=== PATIENT | female | born 1980 | race Hispanic/Latino ===

== ENCOUNTER 2017-12-23 18:52 | Inpatient (IN) | payer OTHER ==
[2017-12-23] MEDS ORDERED: Sodium Chloride 0.9% 1,000 ML IV STA (19:12)
--- NOTE | 2017-12-23 19:15 | ED PDOC ---
HPI: Psych/Substance Abuse Chief Complaint (Provider): Overdose - Ativan 10mg History Per: Patient History/Exam Limitations: no limitations Onset/Duration Of Symptoms: Mins Additional Complaint(s): 37 yo female with history of depression presents for evaluation after taking approx 20 tabs of 0.5 mg ativan. Pt states she was not taking her medications for anxiety and depression for the last 2 months. 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 Pt states that today she began to feel extremely overwhelmed getting ready for school which begins tomorrow. PT than took her medications. #60 Ativan 0.5 on 12/17/17 - Pt takes 1-2 daily. <Angeles Lopez - Last Filed: 12/23/17 20:10> <Juan Nieto - Last Filed: 12/23/17 23:34> Time Seen by Provider: 12/23/17 19:11 Chief Complaint (Nursing): Psychiatric Evaluation Past Medical History Reviewed: Historical Data, Nursing Documentation, Vital Signs Vital Signs: Last Vital Signs Temp 98.5 F 12/23/17 18:55 Pulse 97 H 12/23/17 18:55 Resp 16 12/23/17 18:55 BP 170/55 H 12/23/17 18:55 Pulse Ox 99 12/23/17 18:55 - Medical History PMH: Anxiety, Depression - Surgical History Surgical History: No Surg Hx - Family History Family History: States: No Known Family Hx <Angeles Lopez - Last Filed: 12/23/17 20:10> Vital Signs: Last Vital Signs Temp 98.5 F 12/23/17 18:55 Pulse 76 12/23/17 23:15 Resp 16 12/23/17 23:15 BP 94/61 L 12/23/17 23:15 Pulse Ox 98 12/23/17 23:15 <Juan Nieto - Last Filed: 12/23/17 23:34> - Home Medications Home Medications: Ambulatory Orders Medication Instructions Recorded Escitalopram [Lexapro] 10 mg PO DAILY 12/23/17 LORazepam [Ativan] 0.5 mg PO BID 12/23/17 lamoTRIgine [Lamictal] 100 mg PO HS 12/23/17 - Allergies Allergies/Adverse Reactions: Allergies Allergy/AdvReac Type Severity Reaction Status Date / Time No Known Allergies Allergy Verified 12/23/17 18:58 Review of Systems ROS Statement: Except As Marked, All Systems Reviewed And Found Negative Constitutional: Negative for: Fever, Chills Psych: Positive for: Anxiety, Depression <Angeles Lopez - Last Filed: 12/23/17 20:10> Physical Exam - Reviewed Nursing Documentation Reviewed: Yes Vital Signs Reviewed: Yes - Physical Exam Appears: Positive for: Well, Non-toxic, No Acute Distress Head Exam: Positive for: ATRAUMATIC, NORMAL INSPECTION, NORMOCEPHALIC Skin: Positive for: Normal Color, Warm, DRY Eye Exam: Positive for: Normal appearance ENT: Positive for: Normal ENT Inspection Neck: Positive for: Normal, Painless ROM Cardiovascular/Chest: Positive for: Regular Rate, Rhythm Respiratory: Positive for: CNT, Normal Breath Sounds Back: Positive for: Normal Inspection Extremity: Positive for: Normal ROM Neurologic/Psych: Positive for: Alert, Oriented, Mood/Affect. Negative for: Gait, Facial Droop <Angeles Lopez - Last Filed: 12/23/17 20:10> - Laboratory Results Result Diagrams: 12/23/17 19:21 12/23/17 19:21 - ECG O2 Sat by Pulse Oximetry: 99 <Angeles Lopez - Last Filed: 12/23/17 20:10> - Laboratory Results Result Diagrams: 12/23/17 19:21 12/23/17 19:21 <Juan Nieto - Last Filed: 12/23/17 23:34> Medical Decision Making Medical Decision Making: Called [facility] and discussed with Alexandra Hanson: [employer] depression. Can givena ctivated charcoal if patient alert and can protect their airway. Do nott give reversal agent - Pt has been taking 1-2 times daily. 1914 - Case discussed with Dr. Nieto Repeat vitals stable. Admission to ICU for monitoring. <Angeles Lopez - Last Filed: 12/23/17 20:10> Medical Decision Making: Case referred to Dr Mendoza who has asked that patient be admitted tonight under hospitalist [facility] [place] due to being away for long weekend; case referred to Dr Shah. Dr Mendoza will attempt to transfer to his service tomorrow. <Juan Nieto - Last Filed: 12/23/17 23:34> Disposition - Patient ED Disposition Is Patient to be Admitted: Yes - Disposition Disposition Time: 20:11 - Pt Status Changed To: Hospital Disposition Of: Inpatient - Admit Certification Admit to Inpatient:: After my assessment, the patient will require hospitalization for at least two midnights. This is because of the severity of symptoms shown, intensity of services needed, and/or the medical risk in this patient being treated as an outpatient. - POA Present On Arrival: None <Angeles Lopez - Last Filed: 12/23/17 20:10> <Juan Nieto - Last Filed: 12/23/17 23:34> - Clinical Impression Clinical Impression: Benzodiazepine overdose of undetermined intent - Disposition Condition: GOOD
[2017-12-23] MEDS ORDERED: Activated Charcoal/Sorbitol 25 GM/120 ML PO ONE (19:20)
[2017-12-23 19:28] LABS: BASO % 0.3 % (0.0-2.0); EOS % 0.3 % (0.0-4.0); HEMOGLOBIN 12.9 g/dL (12.0-16.0); LYMPH # 1.5 K/uL (1.0-4.3); LYMPH % 18.1 % (20.0-40.0); MEAN CELL VOLUME 87.3 fl (81.0-99.0); MEAN CORPUSCULAR HEMOGLOBIN 29.7 pg (27.0-31.0); MEAN PLATELET VOLUME 8.2 fl (7.2-11.7); MONO # 0.4 K/uL (0.0-0.8); MONO % 5.4 % (0.0-10.0); NEUT # 6.3 K/uL (1.8-7.0); NEUT % 75.9 % (50.0-75.0); RBC 4.36 Mil/uL (3.80-5.20); RED CELL DISTRIBUTION WIDTH 12.8 % (11.5-14.5); WHITE BLOOD COUNT 8.3 K/uL (4.8-10.8)
[2017-12-23 19:31] LABS: INR 1.1; PROTHROMBIN TIME 12.3 Seconds (9.8-13.1)
[2017-12-23 19:37] LABS: ALB/GLOB RATIO 1.5 (1.0-2.1); ALBUMIN 4.4 g/dL (3.5-5.0); ALT/SGPT 25 U/L (9-52); AST/SGOT 32 U/L (14-36); BLOOD UREA NITROGEN 12 mg/dl (7-17); CALCIUM 8.9 mg/dL (8.4-10.2); GFR NON-AFRICAN AMERICAN > 60
[2017-12-23 19:38] LABS: ACETAMINOPHEN < 10.0 ug/ml (10.0-30.0); SALICYLATE < 1.0 mg/dl
[2017-12-23 21:23] LABS: SQUAMOUS EPITHIAL < 1 /hpf (0-5); URINE BILIRUBIN NEGATIVE (NEGATIVE); URINE BLOOD NEGATIVE (NEGATIVE); URINE CLARITY CLEAR (Clear); URINE COLOR STRAW (YELLOW); URINE GLUCOSE (UA) 50 mg/dL (Normal); URINE LEUKOCYTE ESTERASE NEG Leu/uL (Negative); URINE PROTEIN NEGATIVE (NEGATIVE); URINE UROBILINOGEN 0.2-1.0 mg/dL (0.2-1.0)
[2017-12-23 21:24] LABS: BARBITURATES, UR NEGATIVE (NEGATIVE); BENZODIAZEPINES, UR NEGATIVE (NEGATIVE); OPIATES, UR NEGATIVE (NEGATIVE); PHENCYCLIDINE, UR NEGATIVE (NEGATIVE)
--- NOTE | 2017-12-23 21:30 | CP.PCM.HP ---
History of Present Illness - History of Present Illness History of Present Illness: PMD: Zeeshan May MD Chief Complaint: Drug Overdose The patient was seen and examined in the ED with friends present HPI: The hx was obtained from the patient, her friends and after review of the medial records. She is a 37 years old female with hx of Bipolar, Depression with prior suicide ideation, now brought to the ED 30minutes after intentional ingestion of 20 to 30 Ativan tablets 0.5mg each. She said that she wanted to harm herself. She feels sleepy with dizziness on standing. No LOC, headache, nausea, vomits. no Chest pain but she did feel some palpitation. PMH: Depression and anxiety disorder; Suicide Ideation 2006; PSH: No Surgical Hx SH: Never Smoked; Social alcohol use; No illegal drug use; Live alone; works as a teacher FH: Mother with bipolar Father with CVA in 2006 Allergies: NKDA Medication: Reviewed Present on Admission - Present on Admission Any Indicators Present on Admission: No History of DVT/PE: No History of Uncontrolled Diabetes: No Urinary Catheter: No Decubitus Ulcer Present: No Review of Systems - Review of Systems Review of Systems: Review of system is limited as the patient is sleepy with the Ativan overdose - Constitutional Constitutional: absent: Chills, Fever, Headache - EENT Eyes: Requires Corrective Lenses. absent: Blurred Vision, Diplopia, Floaters Ears: absent: Decreased Hearing, Ear Discharge, Tinnitus Nose/Mouth/Throat: absent: Epistaxis, Nasal Congestion, Nasal Discharge - Cardiovascular Cardiovascular: absent: Chest Pain, Dyspnea, Edema - Respiratory Respiratory: absent: Cough, Dyspnea, Wheezing, Stridor - Gastrointestinal Gastrointestinal: absent: Abdominal Pain, Diarrhea, Nausea, Vomiting - Genitourinary Genitourinary: absent: Dysuria, Flank Pain, Urinary Frequency - Musculoskeletal Musculoskeletal: absent: Muscle Cramps, Muscle Weakness - Integumentary Integumentary: absent: Pruritus, Rash, Skin Ulcer, Sores, Striae, Swelling - Neurological Neurological: Dizziness. absent: Confusion, Headaches, Weakness - Psychiatric Psychiatric: Anxiety, Depression, Suicidal Ideation - Endocrine Endocrine: Palpitations. absent: Polydipsia, Polyphagia, Polyuria - Hematologic/Lymphatic Hematologic: absent: Easy Bleeding, Easy Bruising Past Patient History - Infectious Disease Hx of Infectious Diseases: None - Past Medical History & Family History Past Medical History?: No - Past Social History Smoking Status: Never Smoked Chewing Tobacco Use: No Cigar Use: No Alcohol: Social Home Situation {Lives}: Alone - CARDIAC Hx Cardiac Disorders: No - PULMONARY Hx Respiratory Disorders: No - NEUROLOGICAL Hx Neurological Disorder: No - HEENT Hx HEENT Problems: No Hx Blind: No - RENAL Hx Chronic Kidney Disease: No - ENDOCRINE/METABOLIC Hx Endocrine Disorders: No - HEMATOLOGICAL/ONCOLOGICAL Hx Blood Disorders: No - INTEGUMENTARY Hx Dermatological Problems: No - MUSCULOSKELETAL/RHEUMATOLOGICAL Hx Musculoskeletal Disorders: No - GASTROINTESTINAL Hx Gastrointestinal Disorders: No - GENITOURINARY/GYNECOLOGICAL Hx Genitourinary Disorders: No - PSYCHIATRIC Hx Anxiety: Yes Hx Depression: Yes - SURGICAL HISTORY Hx Surgeries: No - ANESTHESIA Hx Anesthesia: No Meds Allergies/Adverse Reactions: Allergies Allergy/AdvReac Type Severity Reaction Status Date / Time No Known Allergies Allergy Verified 12/23/17 18:58 Physical Exam - Constitutional Appears: No Acute Distress - Head Exam Head Exam: ATRAUMATIC, NORMAL INSPECTION, NORMOCEPHALIC - Eye Exam Eye Exam: EOMI, Normal appearance Pupil Exam: NORMAL ACCOMODATION, PERRL - ENT Exam ENT Exam: Mucous Membranes Dry, Normal Exam, Normal External Ear Exam - Neck Exam Neck exam: Positive for: Full Rom, Normal Inspection. Negative for: Lymphadenopathy, Tenderness - Respiratory Exam Respiratory Exam: Clear to Auscultation Bilateral. absent: Rales, Rhonchi, Wheezes - Cardiovascular Exam Cardiovascular Exam: REGULAR RHYTHM, RRR, +S1, +S2 - GI/Abdominal Exam GI & Abdominal Exam: Normal Bowel Sounds, Soft. absent: Mass, Organomegaly, Tenderness - Rectal Exam Rectal Exam: Deferred - Extremities Exam Extremities exam: Positive for: full ROM, normal inspection. Negative for: calf tenderness, pedal edema - Back Exam Back exam: NORMAL INSPECTION. absent: CVA tenderness (L), CVA tenderness (R) - Neurological Exam Neurological exam: CN II-XII Intact, Oriented x3, Reflexes Normal - Psychiatric Exam Psychiatric exam: Flat Affect - Skin Skin Exam: Dry, Normal Color, Pallor, Warm Results - Vital Signs Recent Vital Signs: Last Vital Signs Temp 98.5 F 12/23/17 18:55 Pulse 95 H 12/23/17 21:17 Resp 20 12/23/17 21:17 BP 114/80 09/03/18 21:17 Pulse Ox 99 12/23/17 21:17 - Labs Result Diagrams: 12/23/17 19:21 12/23/17 19:21 Labs: Laboratory Results - last 24 hr 12/23/17 12/23/17 12/23/17 19:21 19:21 19:21 WBC 8.3 RBC 4.36 Hgb 12.9 Hct 38.0 MCV 87.3 MCH 29.7 MCHC 34.0 RDW 12.8 Plt Count 224 MPV 8.2 Neut % (Auto) 75.9 H Lymph % (Auto) 18.1 L [place] % (Auto) 5.4 Eos % (Auto) 0.3 Baso % (Auto) 0.3 Neut # (Auto) 6.3 Lymph # (Auto) 1.5 [place] # (Auto) 0.4 Eos # (Auto) 0.0 Baso # (Auto) 0.0 PT INR APTT Sodium 139 Potassium 3.8 Chloride 101 Carbon Dioxide 26 Anion Gap 16 BUN 12 Creatinine 0.7 Est GFR ( Amer) > 60 Est GFR (Non-Af Amer) > 60 Random Glucose 100 Lactic Acid Calcium 8.9 Total Bilirubin 0.6 AST 32 ALT 25 Alkaline Phosphatase 47 Total Protein 7.5 Albumin 4.4 Globulin 3.1 Albumin/Globulin Ratio 1.5 Salicylates < 1.0 Urine Opiates Screen Urine Methadone Screen Acetaminophen < 10.0 L Ur Barbiturates Screen Ur Phencyclidine Scrn Ur Amphetamines Screen U Benzodiazepines Scrn U Oth Cocaine Metabols U Cannabinoids Screen Alcohol, Quantitative 12/23/17 12/23/17 12/23/17 19:21 19:41 20:00 WBC RBC Hgb Hct MCV MCH MCHC RDW Plt Count MPV Neut % (Auto) Lymph % (Auto) [place] % (Auto) Eos % (Auto) Baso % (Auto) Neut # (Auto) Lymph # (Auto) [place] # (Auto) Eos # (Auto) Baso # (Auto) PT 12.3 INR 1.1 APTT 28.0 Sodium Potassium Chloride Carbon Dioxide Anion Gap BUN Creatinine Est GFR ( Amer) Est GFR (Non-Af Amer) Random Glucose Lactic Acid 0.8 Calcium Total Bilirubin AST ALT Alkaline Phosphatase Total Protein Albumin Globulin Albumin/Globulin Ratio Salicylates Urine Opiates Screen Urine Methadone Screen Acetaminophen Ur Barbiturates Screen Ur Phencyclidine Scrn Ur Amphetamines Screen U Benzodiazepines Scrn U Oth Cocaine Metabols U Cannabinoids Screen Alcohol, Quantitative < 10 12/23/17 20:58 WBC RBC Hgb Hct MCV MCH MCHC RDW Plt Count MPV Neut % (Auto) Lymph % (Auto) [place] % (Auto) Eos % (Auto) Baso % (Auto) Neut # (Auto) Lymph # (Auto) [place] # (Auto) Eos # (Auto) Baso # (Auto) PT INR APTT Sodium Potassium Chloride Carbon Dioxide Anion Gap BUN Creatinine Est GFR ( Amer) Est GFR (Non-Af Amer) Random Glucose Lactic Acid Calcium Total Bilirubin AST ALT Alkaline Phosphatase Total Protein Albumin Globulin Albumin/Globulin Ratio Salicylates Urine Opiates Screen Negative Urine Methadone Screen Negative Acetaminophen Ur Barbiturates Screen Negative Ur Phencyclidine Scrn Negative Ur Amphetamines Screen Negative U Benzodiazepines Scrn Negative U Oth Cocaine Metabols Negative U Cannabinoids Screen Negative Alcohol, Quantitative - Impressions Impression: Sinus Rhythm with Sinus Arrhythmia 85/min - Imaging and Cardiology Chest x-ray Status: Image reviewed by me Additional comment: No Infiltrate Assessment & Plan - Assessment and Plan (Free Text) Assessment: #. Benzodiazepam Overdose # Suicide Attempt #. Depressive anxiety Disorder Plan: 37 years old female with hx of Bipolar, Depression with prior suicide ideation, now brought to the ED 30minutes after intentional ingestion of 20 to 30 Ativan tablets 0.5mg each. She said that she wanted to harm herself. She feels sleepy with dizziness on standing. No LOC, headache, nausea, vomits. no Chest pain but she did feel some palpitation. #. Benzodiazepam Overdose with Suicide Attempt.. Romazacon was not used as the patient is on treatment with Ativan and could have seizure with acute withdrawal. - Cardiac Monitoring in ICU - 1:1 observation; - IV Fluids - Consult Psychiatry Dr Blanca #. Depressive anxiety Disorder #. Stress Ulcer prophylaxis with Pantoprazole #. DVT prophylaxis with Lovenox #. Code Status: Full - Date & Time Date: 12/23/17 Time: 21:30
[2017-12-23] MEDS ORDERED: Dextrose 5%/0.9% NS 1,000 ML IV SCH (23:45)
[2017-12-24 03:28] VITALS: RESP 16
[2017-12-24 08:23] VITALS: BP 106/63; PULSE 70; TEMP 98.1; O2SAT 97
--- NOTE | 2017-12-24 08:59 | CARD ---
APPROVED REPORT Date of service: 12/23/2017 <Conclusion> Sinus rhythm with premature atrial complexes Otherwise normal ECG
[2017-12-24] MEDS ORDERED: Enoxaparin 40 mg Syringe SC SCH (09:00)
--- NOTE | 2017-12-24 09:14 | CP.PCM.CON ---
History of Present Illness - History of Present Illness History of Present Illness: Psychiatry consult note PMD: Zeeshan May MD Chief Complaint: Suicide attempt HPI: 37 yo female w/ h/o Bipolar II disorder vs MDD, stopped treatment w/ Lamictal and Lexapro September 2017, presents s/p suicide attempt by overdose of 20- 25 Ativan 0.5 mg pills. She reports feeling anxious and stressed due to restarting her job. She denies current ideation to harm herself and is very tearful on interview. Denies AH/VH/paranoia/delusions. PMH: No acute medical problems PPH: H/o psychiatric hospitalization for depression in 2004; no h/o suicide attempt; current outpatient psychiatric treatment with an [employer]; prescribed Ativan ; stopped taking Lamictal and Lexapro in September 2017 PSH: No Surgical Hx SH: Never Smoked; Social alcohol use; Use CBD oils; Live alone; works as a teacher FH: Mother with bipolar Father with CVA in 2006 Allergies: NKDA MSE: A + O x 3, calm, cooperative, no acute distress, mood/affect- depressed and anxious; thought process- linear/coherent, thought content- no delusions, no AH/VH; +Recent suicide attempt, denies current SI/HI; fair I; poor J Impression: 37 yo female w/ h/o Bipolar II Disorder vs MDD and JOEL; requires inpatient psychiatric hospitalization for treatment and safety. -Recommend voluntary psychiatric admission when patient is medically stable; if patient not agreeable to voluntary admission, would screen for involuntary commitment -Continue 1:1 for safety Past Patient History - Infectious Disease Hx of Infectious Diseases: None - Past Medical History & Family History Past Medical History?: Yes - Past Social History Smoking Status: Never Smoked - CARDIAC Hx Cardiac Disorders: No Hx Angina: No Hx Atrial Fibrillation: No Hx Cardia Arrhythmia: No Hx Circulatory Problems: No Hx Congestive Heart Failure: No Hx Heart Attack: No Hx Heart Murmur: No Hx Heart Transplant: No Hx Hypercholesterolemia: No Hx Hypertension: No Hx Hypotension: No Hx Internal Defibrillator: No Hx Mitral Valve Prolapse: No Hx Pacemaker: No Hx Peripheral Edema: No Hx Peripheral Vascular Disease: No - PULMONARY Hx Respiratory Disorders: No Hx Asthma: No Hx Bronchitis: No Hx Chronic Obstructive Pulmonary Disease (COPD): No Hx Emphysema: No Hx Lung Cancer: No Hx Pneumonia: No Hx Pulmonary Edema: No Hx Pulmonary Embolism: No Hx Respiratory Aspiration: No Hx Respiratory Tract Infection: No Hx Sleep Apnea: No Hx Tuberculosis: No - NEUROLOGICAL Hx Neurological Disorder: No Hx Alzheimer's Disease: No HX Cerebrovascular Accident: No Hx Dementia: No Hx Dizziness: No Hx Meningitis: No Hx Migraine: No Hx Multiple Sclerosis: No Hx Paralysis: No Hx Parkinson's Disease: No Hx Seizures: No Hx Syncope: No Hx Transient Ischemic Attacks (TIA): No Hx Vertigo: No - HEENT Hx HEENT Problems: No Hx Blind: No Hx Cataracts: No Hx Deafness: No Hx Difficulty Chewing: No Hx Epistaxis: No Hx Glaucoma: No Hx Macular Degeneration: No Hx Sinusitis: No - RENAL Hx Chronic Kidney Disease: No Hx Dialysis: No Hx Kidney Stones: No Hx Neurogenic Bladder: No Hx Pyelonephritis: No Hx Renal (Kidney) Cancer: No Hx Renal Failure: No - ENDOCRINE/METABOLIC Hx Endocrine Disorders: No Hx Adrenal Cancer: No Hx Diabetes Insipidus: No Hx Diabetes Mellitus Type 1: No Hx Diabetes Mellitus Type 2: No Hx Hyperthyroidism: No Hx Hypothyroidism: No Hx Systemic Lupus Erythematosus: No - HEMATOLOGICAL/ONCOLOGICAL Hx Blood Disorders: No Hx AIDS: No Hx Anemia: No Hx Blood Transfusions: No Hx Blood Transfusion Reaction: No Hx Bruising: No Hx Cancer: No Hx Chemotherapy: No Hx Cirrhosis: No Hx Gum Bleeding: No Hx Hemophilia: No Hx Hepatitis A: No Hx Hepatitis B: No Hx Hepatitis C: No Hx Human Immunodeficiency Virus (HIV): No Hx Leukemia: No Hx Metastesis: No Hx Shingles: No Hx Sickle Cell Disease: No Hx Unexplained Bleeding: No Hx von Willebrand's Disease: No - INTEGUMENTARY Hx Dermatological Problems: No Hx Basil Cell: No Hx Petersen: No Hx Cellulitis: No Hx Eczema: No Hx Melanoma: No Hx Psoriasis: No Hx Squamous Cell: No - MUSCULOSKELETAL/RHEUMATOLOGICAL Hx Musculoskeletal Disorders: No Hx Arthritis: No Hx Back Pain: No Hx Degenerative Joint Disease: No Hx Falls: No Hx Fractures: No Hx Gout: No Hx Herniated Disk: No Hx Myasthenia Gravis: No Hx Osteoarthritis: No Hx Osteomyelitis: No Hx Osteoporosis: No Hx Rhabdomyolysis: No Hx Rheumatoid Arthritis: No Hx Spinal Stenosis: No Hx Unsteady Gait: No - GASTROINTESTINAL Hx Gastrointestinal Disorders: No Hx Bowel Surgery: No Hx Clostridium Difficile: No Hx Colitis: No Hx Colostomy: No Hx Constipation: No Hx Crohn's Disease: No Hx Diarrhea: No Hx Diverticulitis: No Hx Esophageal Varices: No Hx Fatty Liver Disease: No Hx Gall Bladder Disease: No Hx Gastritis: No Hx Gastroesophageal Reflux: No Hx Hemorrhoids: No Hx Ileostomy: No Hx Irritable Bowel: No Hx Liver Failure: No Hx Nausea: No Hx Pancreatitis: No HX Swallowing Problems: No Hx Ulcer: No Hx Vomiting: No - GENITOURINARY/GYNECOLOGICAL Hx Genitourinary Disorders: No Hx Bladder Cancer: No Hx Bladder Stone: No Hx Cervical Cancer: No Hx Hematuria: No Hx Incontinence: No Hx Ovarian Cancer: No Hx Postmenopausal Bleeding: No Hx Reproductive Disorders: No Hx Sexually Transmitted Disorders: No Hx Uterine Cancer: No - PSYCHIATRIC Hx Psychophysiologic Disorder: Yes Hx Anxiety: Yes Hx Bipolar Disorder: Yes Hx Depression: Yes Hx Emotional Abuse: No Hx Hallucinations: No Hx Panic Symptoms: No Hx Paranoia: No Hx Post Traumatic Stress Disorder: No Hx Psychosis: No Hx Physical Abuse: No Hx Schizophrenia: No Hx Sexual Abuse: No Hx Substance Use: No - SURGICAL HISTORY Hx Surgeries: No Hx Abdominal Aortic Aneurysm Repair: No Hx Amputation: No Hx Angiogram: No Hx Angioplasty: No Hx Appendectomy: No Hx Arteriovenous Shunt: No Hx Arthroscopy: No Hx Bile Duct Stent: No Hx Breast Biopsy: No Hx Cataract Extraction: No Hx Cardiac Catheterization: No Hx Carotid Endarterectomy: No Hx Section: No Hx Cholecystectomy: No Hx Coronary Artery Bypass Graft: No Hx Coronary Stent: No Hx Dilation and Curettage: No Hx Eye Surgery: No Hx Femoral-Popliteal Bypass Graft: No Hx Gastric Bypass Surgery: No Hx Herniorrhaphy: No Hx Hysterectomy: No Hx Joint Replacement: No Hx Kidney Transplant: No Hx Liver Transplant: No Hx Mastectomy: No Hx Musculoskeletal Surgery: No Hx Open Heart Surgery: No Hx Open Reduction Internal Fixation: No Hx Orthopedic Surgery: No Hx Parathyroidectomy: No Hx Penile Implant: No Hx Pulmonary Surgery: No Hx Splenectomy: No Hx Thyroidectomy: No Hx Tonsillectomy: No Hx Tubal Ligation: No Hx Valve Replacement: No Hx Vascular Surgery: No Hx Vascular Access Device: No - ANESTHESIA Hx Anesthesia: No Hx Anesthesia Reactions: No Hx Malignant Hyperthermia: No Has any member of the family had a problem w/ anesthesia?: No Meds Allergies/Adverse Reactions: Allergies Allergy/AdvReac Type Severity Reaction Status Date / Time No Known Allergies Allergy Verified 12/23/17 18:58 - Medications Medications: Current Medications Enoxaparin Sodium (Lovenox) 40 mg SC DAILY NAVI PRN Reason: Protocol Last Admin: 12/24/17 08:20 Dose: 40 mg Dextrose/Sodium Chloride (Dextrose 5%/0.9% Ns 1000 Ml) 1,000 mls @ 125 mls/hr IV .Q8H NAVI Stop: 12/24/17 23:33 Last Admin: 12/24/17 00:15 Dose: 125 mls/hr Ondansetron HCl (Zofran Inj) 4 mg IVP Q4 PRN PRN Reason: Nausea/Vomiting Results - Vital Signs Recent Vital Signs: Last Vital Signs Temp 98.1 F 12/24/17 08:00 Pulse 70 12/24/17 08:00 Resp 16 12/24/17 08:00 BP 106/63 12/24/17 08:00 Pulse Ox 97 12/24/17 08:00 - Labs Result Diagrams: 12/23/17 19:21 12/23/17 19:21 Labs: Laboratory Results - last 24 hr 12/23/17 12/23/17 12/23/17 19:21 19:21 19:21 WBC 8.3 RBC 4.36 Hgb 12.9 Hct 38.0 MCV 87.3 MCH 29.7 MCHC 34.0 RDW 12.8 Plt Count 224 MPV 8.2 Neut % (Auto) 75.9 H Lymph % (Auto) 18.1 L [place] % (Auto) 5.4 Eos % (Auto) 0.3 Baso % (Auto) 0.3 Neut # (Auto) 6.3 Lymph # (Auto) 1.5 [place] # (Auto) 0.4 Eos # (Auto) 0.0 Baso # (Auto) 0.0 PT INR APTT Sodium 139 Potassium 3.8 Chloride 101 Carbon Dioxide 26 Anion Gap 16 BUN 12 Creatinine 0.7 Est GFR ( Amer) > 60 Est GFR (Non-Af Amer) > 60 Random Glucose 100 Lactic Acid Calcium 8.9 Total Bilirubin 0.6 AST 32 ALT 25 Alkaline Phosphatase 47 Total Protein 7.5 Albumin 4.4 Globulin 3.1 Albumin/Globulin Ratio 1.5 Urine Color Urine Clarity Urine pH Ur Specific Chrisman Urine Protein Urine Glucose (UA) Urine Ketones Urine Blood Urine Nitrate Urine Bilirubin Urine Urobilinogen Ur Leukocyte Esterase Urine RBC (Auto) Ur Squamous Epith Cells Salicylates < 1.0 Urine Opiates Screen Urine Methadone Screen Acetaminophen < 10.0 L Ur Barbiturates Screen Ur Phencyclidine Scrn Ur Amphetamines Screen U Benzodiazepines Scrn U Oth Cocaine Metabols U Cannabinoids Screen Alcohol, Quantitative 12/23/17 12/23/17 12/23/17 19:21 19:41 20:00 WBC RBC Hgb Hct MCV MCH MCHC RDW Plt Count MPV Neut % (Auto) Lymph % (Auto) [place] % (Auto) Eos % (Auto) Baso % (Auto) Neut # (Auto) Lymph # (Auto) [place] # (Auto) Eos # (Auto) Baso # (Auto) PT 12.3 INR 1.1 APTT 28.0 Sodium Potassium Chloride Carbon Dioxide Anion Gap BUN Creatinine Est GFR ( Amer) Est GFR (Non-Af Amer) Random Glucose Lactic Acid 0.8 Calcium Total Bilirubin AST ALT Alkaline Phosphatase Total Protein Albumin Globulin Albumin/Globulin Ratio Urine Color Urine Clarity Urine pH Ur Specific Chrisman Urine Protein Urine Glucose (UA) Urine Ketones Urine Blood Urine Nitrate Urine Bilirubin Urine Urobilinogen Ur Leukocyte Esterase Urine RBC (Auto) Ur Squamous Epith Cells Salicylates Urine Opiates Screen Urine Methadone Screen Acetaminophen Ur Barbiturates Screen Ur Phencyclidine Scrn Ur Amphetamines Screen U Benzodiazepines Scrn U Oth Cocaine Metabols U Cannabinoids Screen Alcohol, Quantitative < 10 12/23/17 12/23/17 20:58 20:58 WBC RBC Hgb Hct MCV MCH MCHC RDW Plt Count MPV Neut % (Auto) Lymph % (Auto) [place] % (Auto) Eos % (Auto) Baso % (Auto) Neut # (Auto) Lymph # (Auto) [place] # (Auto) Eos # (Auto) Baso # (Auto) PT INR APTT Sodium Potassium Chloride Carbon Dioxide Anion Gap BUN Creatinine Est GFR ( Amer) Est GFR (Non-Af Amer) Random Glucose Lactic Acid Calcium Total Bilirubin AST ALT Alkaline Phosphatase Total Protein Albumin Globulin Albumin/Globulin Ratio Urine Color Straw Urine Clarity Clear Urine pH 6.0 Ur Specific Chrisman 1.005 Urine Protein Negative Urine Glucose (UA) 50 Urine Ketones Trace Urine Blood Negative Urine Nitrate Negative Urine Bilirubin Negative Urine Urobilinogen 0.2-1.0 Ur Leukocyte Esterase Neg Urine RBC (Auto) < 1 Ur Squamous Epith Cells < 1 Salicylates Urine Opiates Screen Negative Urine Methadone Screen Negative Acetaminophen Ur Barbiturates Screen Negative Ur Phencyclidine Scrn Negative Ur Amphetamines Screen Negative U Benzodiazepines Scrn Negative U Oth Cocaine Metabols Negative U Cannabinoids Screen Negative Alcohol, Quantitative
--- NOTE | 2017-12-24 10:53 | RAD ---
HISTORY: admit COMPARISON: None available. TECHNIQUE: Chest, one view. FINDINGS: LUNGS: No focal consolidation. Please note that chest x-ray has limited sensitivity for the detection of pulmonary masses. PLEURA: No significant pleural effusion identified. No definite pneumothorax . CARDIOVASCULAR: Heart size appears within normal limits. OSSEOUS STRUCTURES: No acute osseous abnormality identified. VISUALIZED UPPER ABDOMEN: Unremarkable. OTHER FINDINGS: None. IMPRESSION: No focal consolidation, significant pleural effusion, or definite pneumothorax identified.
--- NOTE | 2017-12-24 13:54 | CP.CCUPN ---
CCU Subjective - Physician Review Subjective (Free Text): 12/24/17 17:16 The patient was Seen/interviewed and examined by me at the bedside during ICU round, Medical records reviewed and Management issues were discussed and formulated with the house staff. Events reviewed Awake, Alert, follows commands, Pt AAO x3. Comfortable, NAD Alert and oriented to self. Breathing unlabored, on room air O2 sat 100%. Denies any chest pain, SOB or Palpitations Afebrile, NSR on the monitor Evaluated by Psych this morning Remains on 1:1 constant observation Clinically and hemodynamically improved No Vasopressors Stable for transfer to inpatient Psych unit. CCU Objective - Vital Signs / Intake & Output Intake and Output (Last 8hrs): Intake & Output 12/23/17 12/24/17 12/24/17 22:59 06:59 14:59 Intake Total 375 Balance 375 Weight 153 lb Intake: IV 375 - Physical Exam Head: Positive for: Atraumatic, Normocephalic Pupils: Positive for: PERRL Extroacular Muscles: Positive for: EOMI Conjunctiva: Positive for: Normal. Negative for: Injected, Icteric Mouth: Positive for: Moist Mucous Membranes Nose (Internal): Positive for: Normal Inspection Neck: Positive for: Normal Range of Motion, Trachea Midline. Negative for: Meningeal Signs, MIDLINE TENDERNESS, Paraspinal Tenderness, JVD, Lymphadenopathy , Bruit, Other Respiratory/Chest: Positive for: Clear to Auscultation, Good Air Exchange. Negative for: Respiratory Distress, Accessory Muscle Use, Wheezes, Rales, Rhonchi Cardiovascular: Positive for: Regular Rate and Rhythm, Normal S1, S2, Peripheal Pulses Present. Negative for: Murmurs, Irregular Rhythm Abdomen: Positive for: Normal Bowel Sounds. Negative for: Tenderness, Distention Upper Extremity: Positive for: Normal Inspection, Normal ROM, NORMAL PULSES, Capillary Refill < 2s. Negative for: Cyanosis, Edema Lower Extremity: Positive for: Normal Inspection, NORMAL PULSES, Capillary Refill < 2 s. Negative for: Edema, CALF TENDERNESS Neurological: Positive for: GCS=15, CN II-XII Intact, Motor Func Grossly Intact , Normal Sensory Function. Negative for: Speech Normal Psychiatric: Positive for: Alert, Oriented x 3 - Patient Studies Lab Studies: Lab Studies 12/23/17 12/23/17 12/23/17 Range/Units 20:58 20:58 20:00 WBC (4.8-10.8) K/uL RBC (3.80-5.20) Mil/uL Hgb (12.0-16.0) g/dL Hct (34.0-47.0) % MCV (81.0-99.0) fl MCH (27.0-31.0) pg MCHC (33.0-37.0) g/dL RDW (11.5-14.5) % Plt Count (130-400) K/uL MPV (7.2-11.7) fl Neut % (Auto) (50.0-75.0) % Lymph % (Auto) (20.0-40.0) % [place] % (Auto) (0.0-10.0) % Eos % (Auto) (0.0-4.0) % Baso % (Auto) (0.0-2.0) % Neut # (Auto) (1.8-7.0) K/uL Lymph # (Auto) (1.0-4.3) K/uL [place] # (Auto) (0.0-0.8) K/uL Eos # (Auto) (0.0-0.7) K/uL Baso # (Auto) (0.0-0.2) K/uL PT (9.8-13.1) Seconds INR APTT (25.6-37.1) Seconds Sodium (132-148) mmol/l Potassium (3.6-5.0) MMOL/L Chloride (98-107) mmol/L Carbon Dioxide (22-30) mmol/L Anion Gap (10-20) BUN (7-17) mg/dl Creatinine (0.7-1.2) mg/dl Est GFR ( Amer) Est GFR (Non-Af Amer) Random Glucose (65-105) mg/dL Lactic Acid (0.7-2.1) MMOL/L Calcium (8.4-10.2) mg/dL Total Bilirubin (0.2-1.3) mg/dl AST (14-36) U/L ALT (9-52) U/L Alkaline Phosphatase (38-126) U/L Total Protein (6.3-8.2) G/DL Albumin (3.5-5.0) g/dL Globulin (2.2-3.9) gm/dL Albumin/Globulin Ratio (1.0-2.1) Urine Color Straw (YELLOW) Urine Clarity Clear (Clear) Urine pH 6.0 (5.0-8.0) Ur Specific [place] 1.005 (1.003-1.030) Urine Protein Negative (NEGATIVE) mg/dL Urine Glucose (UA) 50 (Normal) mg/dL Urine Ketones Trace (NEGATIVE) mg/dL Urine Blood Negative (NEGATIVE) Urine Nitrate Negative (NEGATIVE) Urine Bilirubin Negative (NEGATIVE) Urine Urobilinogen 0.2-1.0 (0.2-1.0) mg/dL Ur Leukocyte Esterase Neg (Negative) Karl/uL Urine RBC (Auto) < 1 (0-3) /hpf Ur Squamous Epith Cells < 1 (0-5) /hpf Salicylates mg/dl Urine Opiates Screen Negative (NEGATIVE) Urine Methadone Screen Negative (NEGATIVE) Acetaminophen (10.0-30.0) ug/ml Ur Barbiturates Screen Negative (NEGATIVE) Ur Phencyclidine Scrn Negative (NEGATIVE) Ur Amphetamines Screen Negative (NEGATIVE) U Benzodiazepines Scrn Negative (NEGATIVE) U Oth Cocaine Metabols Negative (NEGATIVE) U Cannabinoids Screen Negative (NEGATIVE) Alcohol, Quantitative < 10 (0-10) mg/dl 12/23/17 12/23/17 12/23/17 Range/Units 19:41 19:21 19:21 WBC (4.8-10.8) K/uL RBC (3.80-5.20) Mil/uL Hgb (12.0-16.0) g/dL Hct (34.0-47.0) % MCV (81.0-99.0) fl MCH (27.0-31.0) pg MCHC (33.0-37.0) g/dL RDW (11.5-14.5) % Plt Count (130-400) K/uL MPV (7.2-11.7) fl Neut % (Auto) (50.0-75.0) % Lymph % (Auto) (20.0-40.0) % [place] % (Auto) (0.0-10.0) % Eos % (Auto) (0.0-4.0) % Baso % (Auto) (0.0-2.0) % Neut # (Auto) (1.8-7.0) K/uL Lymph # (Auto) (1.0-4.3) K/uL [place] # (Auto) (0.0-0.8) K/uL Eos # (Auto) (0.0-0.7) K/uL Baso # (Auto) (0.0-0.2) K/uL PT 12.3 (9.8-13.1) Seconds INR 1.1 APTT 28.0 (25.6-37.1) Seconds Sodium (132-148) mmol/l Potassium (3.6-5.0) MMOL/L Chloride (98-107) mmol/L Carbon Dioxide (22-30) mmol/L Anion Gap (10-20) BUN (7-17) mg/dl Creatinine (0.7-1.2) mg/dl Est GFR ( Amer) Est GFR (Non-Af Amer) Random Glucose (65-105) mg/dL Lactic Acid 0.8 (0.7-2.1) MMOL/L Calcium (8.4-10.2) mg/dL Total Bilirubin (0.2-1.3) mg/dl AST (14-36) U/L ALT (9-52) U/L Alkaline Phosphatase (38-126) U/L Total Protein (6.3-8.2) G/DL Albumin (3.5-5.0) g/dL Globulin (2.2-3.9) gm/dL Albumin/Globulin Ratio (1.0-2.1) Urine Color (YELLOW) Urine Clarity (Clear) Urine pH (5.0-8.0) Ur Specific [place] (1.003-1.030) Urine Protein (NEGATIVE) mg/dL Urine Glucose (UA) (Normal) mg/dL Urine Ketones (NEGATIVE) mg/dL Urine Blood (NEGATIVE) Urine Nitrate (NEGATIVE) Urine Bilirubin (NEGATIVE) Urine Urobilinogen (0.2-1.0) mg/dL Ur Leukocyte Esterase (Negative) Karl/uL Urine RBC (Auto) (0-3) /hpf Ur Squamous Epith Cells (0-5) /hpf Salicylates < 1.0 mg/dl Urine Opiates Screen (NEGATIVE) Urine Methadone Screen (NEGATIVE) Acetaminophen < 10.0 L (10.0-30.0) ug/ml Ur Barbiturates Screen (NEGATIVE) Ur Phencyclidine Scrn (NEGATIVE) Ur Amphetamines Screen (NEGATIVE) U Benzodiazepines Scrn (NEGATIVE) U Oth Cocaine Metabols (NEGATIVE) U Cannabinoids Screen (NEGATIVE) Alcohol, Quantitative (0-10) mg/dl 12/23/17 12/23/17 Range/Units 19:21 19:21 WBC 8.3 (4.8-10.8) K/uL RBC 4.36 (3.80-5.20) Mil/uL Hgb 12.9 (12.0-16.0) g/dL Hct 38.0 (34.0-47.0) % MCV 87.3 (81.0-99.0) fl MCH 29.7 (27.0-31.0) pg MCHC 34.0 (33.0-37.0) g/dL RDW 12.8 (11.5-14.5) % Plt Count 224 (130-400) K/uL MPV 8.2 (7.2-11.7) fl Neut % (Auto) 75.9 H (50.0-75.0) % Lymph % (Auto) 18.1 L (20.0-40.0) % [place] % (Auto) 5.4 (0.0-10.0) % Eos % (Auto) 0.3 (0.0-4.0) % Baso % (Auto) 0.3 (0.0-2.0) % Neut # (Auto) 6.3 (1.8-7.0) K/uL Lymph # (Auto) 1.5 (1.0-4.3) K/uL [place] # (Auto) 0.4 (0.0-0.8) K/uL Eos # (Auto) 0.0 (0.0-0.7) K/uL Baso # (Auto) 0.0 (0.0-0.2) K/uL PT (9.8-13.1) Seconds INR APTT (25.6-37.1) Seconds Sodium 139 (132-148) mmol/l Potassium 3.8 (3.6-5.0) MMOL/L Chloride 101 (98-107) mmol/L Carbon Dioxide 26 (22-30) mmol/L Anion Gap 16 (10-20) BUN 12 (7-17) mg/dl Creatinine 0.7 (0.7-1.2) mg/dl Est GFR ( Amer) > 60 Est GFR (Non-Af Amer) > 60 Random Glucose 100 (65-105) mg/dL Lactic Acid (0.7-2.1) MMOL/L Calcium 8.9 (8.4-10.2) mg/dL Total Bilirubin 0.6 (0.2-1.3) mg/dl AST 32 (14-36) U/L ALT 25 (9-52) U/L Alkaline Phosphatase 47 (38-126) U/L Total Protein 7.5 (6.3-8.2) G/DL Albumin 4.4 (3.5-5.0) g/dL Globulin 3.1 (2.2-3.9) gm/dL Albumin/Globulin Ratio 1.5 (1.0-2.1) Urine Color (YELLOW) Urine Clarity (Clear) Urine pH (5.0-8.0) Ur Specific [place] (1.003-1.030) Urine Protein (NEGATIVE) mg/dL Urine Glucose (UA) (Normal) mg/dL Urine Ketones (NEGATIVE) mg/dL Urine Blood (NEGATIVE) Urine Nitrate (NEGATIVE) Urine Bilirubin (NEGATIVE) Urine Urobilinogen (0.2-1.0) mg/dL Ur Leukocyte Esterase (Negative) Karl/uL Urine RBC (Auto) (0-3) /hpf Ur Squamous Epith Cells (0-5) /hpf Salicylates mg/dl Urine Opiates Screen (NEGATIVE) Urine Methadone Screen (NEGATIVE) Acetaminophen (10.0-30.0) ug/ml Ur Barbiturates Screen (NEGATIVE) Ur Phencyclidine Scrn (NEGATIVE) Ur Amphetamines Screen (NEGATIVE) U Benzodiazepines Scrn (NEGATIVE) U Oth Cocaine Metabols (NEGATIVE) U Cannabinoids Screen (NEGATIVE) Alcohol, Quantitative (0-10) mg/dl Laboratory Results - last 24 hr 12/23/17 12/23/17 12/23/17 19:21 19:21 19:21 WBC 8.3 RBC 4.36 Hgb 12.9 Hct 38.0 MCV 87.3 MCH 29.7 MCHC 34.0 RDW 12.8 Plt Count 224 MPV 8.2 Neut % (Auto) 75.9 H Lymph % (Auto) 18.1 L [place] % (Auto) 5.4 Eos % (Auto) 0.3 Baso % (Auto) 0.3 Neut # (Auto) 6.3 Lymph # (Auto) 1.5 [place] # (Auto) 0.4 Eos # (Auto) 0.0 Baso # (Auto) 0.0 PT INR APTT Sodium 139 Potassium 3.8 Chloride 101 Carbon Dioxide 26 Anion Gap 16 BUN 12 Creatinine 0.7 Est GFR ( Amer) > 60 Est GFR (Non-Af Amer) > 60 Random Glucose 100 Lactic Acid Calcium 8.9 Total Bilirubin 0.6 AST 32 ALT 25 Alkaline Phosphatase 47 Total Protein 7.5 Albumin 4.4 Globulin 3.1 Albumin/Globulin Ratio 1.5 Urine Color Urine Clarity Urine pH Ur Specific [place] Urine Protein Urine Glucose (UA) Urine Ketones Urine Blood Urine Nitrate Urine Bilirubin Urine Urobilinogen Ur Leukocyte Esterase Urine RBC (Auto) Ur Squamous Epith Cells Salicylates < 1.0 Urine Opiates Screen Urine Methadone Screen Acetaminophen < 10.0 L Ur Barbiturates Screen Ur Phencyclidine Scrn Ur Amphetamines Screen U Benzodiazepines Scrn U Oth Cocaine Metabols U Cannabinoids Screen Alcohol, Quantitative 12/23/17 12/23/17 12/23/17 19:21 19:41 20:00 WBC RBC Hgb Hct MCV MCH MCHC RDW Plt Count MPV Neut % (Auto) Lymph % (Auto) [place] % (Auto) Eos % (Auto) Baso % (Auto) Neut # (Auto) Lymph # (Auto) [place] # (Auto) Eos # (Auto) Baso # (Auto) PT 12.3 INR 1.1 APTT 28.0 Sodium Potassium Chloride Carbon Dioxide Anion Gap BUN Creatinine Est GFR ( Amer) Est GFR (Non-Af Amer) Random Glucose Lactic Acid 0.8 Calcium Total Bilirubin AST ALT Alkaline Phosphatase Total Protein Albumin Globulin Albumin/Globulin Ratio Urine Color Urine Clarity Urine pH Ur Specific [place] Urine Protein Urine Glucose (UA) Urine Ketones Urine Blood Urine Nitrate Urine Bilirubin Urine Urobilinogen Ur Leukocyte Esterase Urine RBC (Auto) Ur Squamous Epith Cells Salicylates Urine Opiates Screen Urine Methadone Screen Acetaminophen Ur Barbiturates Screen Ur Phencyclidine Scrn Ur Amphetamines Screen U Benzodiazepines Scrn U Oth Cocaine Metabols U Cannabinoids Screen Alcohol, Quantitative < 10 12/23/17 12/23/17 20:58 20:58 WBC RBC Hgb Hct MCV MCH MCHC RDW Plt Count MPV Neut % (Auto) Lymph % (Auto) [place] % (Auto) Eos % (Auto) Baso % (Auto) Neut # (Auto) Lymph # (Auto) [place] # (Auto) Eos # (Auto) Baso # (Auto) PT INR APTT Sodium Potassium Chloride Carbon Dioxide Anion Gap BUN Creatinine Est GFR ( Amer) Est GFR (Non-Af Amer) Random Glucose Lactic Acid Calcium Total Bilirubin AST ALT Alkaline Phosphatase Total Protein Albumin Globulin Albumin/Globulin Ratio Urine Color Straw Urine Clarity Clear Urine pH 6.0 Ur Specific [place] 1.005 Urine Protein Negative Urine Glucose (UA) 50 Urine Ketones Trace Urine Blood Negative Urine Nitrate Negative Urine Bilirubin Negative Urine Urobilinogen 0.2-1.0 Ur Leukocyte Esterase Neg Urine RBC (Auto) < 1 Ur Squamous Epith Cells < 1 Salicylates Urine Opiates Screen Negative Urine Methadone Screen Negative Acetaminophen Ur Barbiturates Screen Negative Ur Phencyclidine Scrn Negative Ur Amphetamines Screen Negative U Benzodiazepines Scrn Negative U Oth Cocaine Metabols Negative U Cannabinoids Screen Negative Alcohol, Quantitative EKG/Cardiology Studies: Cardiology / EKG Studies 12/23/17 19:20 EKG [ELECTROCARDIOGRAM] Stat Comment: Mode Of Transportation: Reason For Exam: Overdose Review of Systems - Cardiovascular Cardiovascular: absent: As Per HPI, Acrocyanosis, Chest Pain, Chest Pain at Rest , Chest Pain with Activity, Claudication, Diaphoresis, Dyspnea, Dyspnea on Exertion, Edema, Irregular Heart Rhythm, Pain Radiating to Arm/Neck/Jaw, Leg Edema, Leg Ulcers, Lightheadedness, Orthopnea, Palpitations, Paroxysmal Nocturnal Dyspnea, Pedal Edema, Radiating Pain, Rapid Heart Rate, Slow Heart Rate, Syncope, Other, UNREMARKABLE - Respiratory Respiratory: absent: As Per HPI, Cough, Dyspnea, Hemoptysis, Dyspnea on Exertion , Wheezing, Snoring, Stridor, Pain on Inspiration, Chest Congestion, Excessive Mucous Production, Change in Mucous Color, Pain with Coughing, Other, UNREMARKABLE Critical Care Progress Note - Extremities/Vascular Does the Patient have a Central Venous Catheter?: No Does the Patient need a Central Venous Catheter?: No Does the Patient have a Read Catheter?: No Does the Patient need a Read Catheter?: No - Nutrition Nutrition: Nutrition Category Date Time Status Regular Diet [DIET] Diets 12/24/17 Breakfast Active Assessment/Plan (1) Suicidal ideations Status: Acute (2) Benzodiazepine overdose of undetermined intent Status: Acute
--- NOTE | 2017-12-24 16:57 | CP.PCM.DIS ---
Provider - Provider Date of Admission: 12/23/17 19:57 Attending physician: Zeeshan Mendoza MD Primary care physician: DR Mendoza Consults: Psych: Dr Smith ICU : Dr estevez Time Spent in preparation of Discharge (in minutes): 20 Diagnosis - Discharge Diagnosis (1) Benzodiazepine (tranquilizer) overdose Status: Acute (2) Suicidal ideations Status: Acute (3) Bipolar disorder Status: Chronic Hospital Course - Lab Results Lab Results: Most Recent Lab Values WBC 8.3 K/uL (4.8-10.8) 12/23/17 19:21 RBC 4.36 Mil/uL (3.80-5.20) 12/23/17 19:21 Hgb 12.9 g/dL (12.0-16.0) 12/23/17 19:21 Hct 38.0 % (34.0-47.0) 12/23/17 19:21 MCV 87.3 fl (81.0-99.0) 12/23/17 19:21 MCH 29.7 pg (27.0-31.0) 12/23/17 19:21 MCHC 34.0 g/dL (33.0-37.0) 12/23/17 19:21 RDW 12.8 % (11.5-14.5) 12/23/17 19:21 Plt Count 224 K/uL (130-400) 12/23/17 19:21 MPV 8.2 fl (7.2-11.7) 12/23/17 19:21 Neut % (Auto) 75.9 % (50.0-75.0) H 12/23/17 19:21 Lymph % (Auto) 18.1 % (20.0-40.0) L 12/23/17 19:21 [place] % (Auto) 5.4 % (0.0-10.0) 12/23/17 19:21 Eos % (Auto) 0.3 % (0.0-4.0) 12/23/17 19:21 Baso % (Auto) 0.3 % (0.0-2.0) 12/23/17 19:21 Neut # (Auto) 6.3 K/uL (1.8-7.0) 12/23/17 19:21 Lymph # (Auto) 1.5 K/uL (1.0-4.3) 12/23/17 19:21 [place] # (Auto) 0.4 K/uL (0.0-0.8) 12/23/17 19:21 Eos # (Auto) 0.0 K/uL (0.0-0.7) 12/23/17 19:21 Baso # (Auto) 0.0 K/uL (0.0-0.2) 12/23/17 19:21 PT 12.3 Seconds (9.8-13.1) 12/23/17 19:21 INR 1.1 12/23/17 19:21 APTT 28.0 Seconds (25.6-37.1) 12/23/17 19:21 Sodium 139 mmol/l (132-148) 12/23/17 19:21 Potassium 3.8 MMOL/L (3.6-5.0) 12/23/17 19:21 Chloride 101 mmol/L (98-107) 12/23/17 19:21 Carbon Dioxide 26 mmol/L (22-30) 12/23/17 19:21 Anion Gap 16 (10-20) 12/23/17 19:21 BUN 12 mg/dl (7-17) 12/23/17 19:21 Creatinine 0.7 mg/dl (0.7-1.2) 12/23/17 19:21 Est GFR ( Amer) > 60 12/23/17 19:21 Est GFR (Non-Af Amer) > 60 12/23/17 19:21 Random Glucose 100 mg/dL (65-105) 12/23/17 19:21 Lactic Acid 0.8 MMOL/L (0.7-2.1) 12/23/17 19:41 Calcium 8.9 mg/dL (8.4-10.2) 12/23/17 19:21 Total Bilirubin 0.6 mg/dl (0.2-1.3) 12/23/17 19:21 AST 32 U/L (14-36) 12/23/17 19:21 ALT 25 U/L (9-52) 12/23/17 19:21 Alkaline Phosphatase 47 U/L (38-126) 12/23/17 19:21 Total Protein 7.5 G/DL (6.3-8.2) 12/23/17 19:21 Albumin 4.4 g/dL (3.5-5.0) 12/23/17 19:21 Globulin 3.1 gm/dL (2.2-3.9) 12/23/17 19:21 Albumin/Globulin Ratio 1.5 (1.0-2.1) 12/23/17 19:21 Urine Color Straw (YELLOW) 12/23/17 20:58 Urine Clarity Clear (Clear) 12/23/17 20:58 Urine pH 6.0 (5.0-8.0) 12/23/17 20:58 Ur Specific [place] 1.005 (1.003-1.030) 12/23/17 20:58 Urine Protein Negative mg/dL (NEGATIVE) 12/23/17 20:58 Urine Glucose (UA) 50 mg/dL (Normal) 12/23/17 20:58 Urine Ketones Trace mg/dL (NEGATIVE) 12/23/17 20:58 Urine Blood Negative (NEGATIVE) 12/23/17 20:58 Urine Nitrate Negative (NEGATIVE) 12/23/17 20:58 Urine Bilirubin Negative (NEGATIVE) 12/23/17 20:58 Urine Urobilinogen 0.2-1.0 mg/dL (0.2-1.0) 12/23/17 20:58 Ur Leukocyte Esterase Neg Karl/uL (Negative) 12/23/17 20:58 Urine RBC (Auto) < 1 /hpf (0-3) 12/23/17 20:58 Ur Squamous Epith Cells < 1 /hpf (0-5) 12/23/17 20:58 Salicylates < 1.0 mg/dl 12/23/17 19:21 Urine Opiates Screen Negative (NEGATIVE) 12/23/17 20:58 Urine Methadone Screen Negative (NEGATIVE) 12/23/17 20:58 Acetaminophen < 10.0 ug/ml (10.0-30.0) L 12/23/17 19:21 Ur Barbiturates Screen Negative (NEGATIVE) 12/23/17 20:58 Ur Phencyclidine Scrn Negative (NEGATIVE) 12/23/17 20:58 Ur Amphetamines Screen Negative (NEGATIVE) 12/23/17 20:58 U Benzodiazepines Scrn Negative (NEGATIVE) 12/23/17 20:58 U Oth Cocaine Metabols Negative (NEGATIVE) 12/23/17 20:58 U Cannabinoids Screen Negative (NEGATIVE) 12/23/17 20:58 Alcohol, Quantitative < 10 mg/dl (0-10) 12/23/17 20:00 - Hospital Course Hospital Course: 37 years old female with hx of Bipolar, Depression with prior suicide ideation, brought to the ED 30minutes after intentional ingestion of 20 to 30 Ativan tablets 0.5mg each. She said that she wanted to harm herself. Patient was drowsy however hemodynamicaly stable. She received Activated Charcoal in the ED. She was monitored closely in the ICU and placed on 1:1 Observation. Psych consulted and recommended Inpatient Psych admission. 1. Benzodiazepine Overdose with Suicide Attempt.. Romazicon was not used as the patient is on treatment with Ativan and could have seizure with acute withdrawal. - Cardiac Monitoring in ICU - 1:1 observation; - IV Fluids - Consulted Psychiatry Dr Smith - d/c to Inpatient Psych - pt remained stable , alert, oriented x 3, no respiratory depression, VS stable 2. Bipolar Disorder #. DVT prophylaxis with Lovenox Discharge Exam - Head Exam Head Exam: ATRAUMATIC, NORMAL INSPECTION, NORMOCEPHALIC - Eye Exam Eye Exam: EOMI, Normal appearance Pupil Exam: NORMAL ACCOMODATION - ENT Exam ENT Exam: Mucous Membranes Moist, Normal External Ear Exam - Neck Exam Neck exam: Full Rom - Respiratory Exam Respiratory Exam: NORMAL BREATHING PATTERN. absent: Respiratory Distress - Cardiovascular Exam Cardiovascular Exam: REGULAR RHYTHM, +S1, +S2 - GI/Abdominal Exam GI & Abdominal Exam: Normal Bowel Sounds, Soft. absent: Tenderness - Extremities Exam Extremities exam: full ROM, normal capillary refill, pedal pulses present - Back Exam Back exam: FULL ROM. absent: CVA tenderness (L), CVA tenderness (R) - Neurological Exam Neurological exam: Alert, CN II-XII Intact, Oriented x3, Reflexes Normal - Psychiatric Exam Psychiatric exam: Anxious, Depressed - Skin Skin Exam: Dry, Normal Color, Warm Discharge Plan - Follow Up Plan Condition: GOOD Disposition: DISCHARGE TO PSYCH HOSPITAL Additional Instructions: d/c to inpatient Psych Referrals: Zeeshan Mendoza MD [Staff Provider] -
== END 2017-12-24 11:35 | DRG 918 ==
LOC: H.ER 18:52 → H.ERHOLD 19:57 → H.ICU/CCU 12-24 01:20
PROVIDERS: ADMIT Family Medicine; ATTEND Family Medicine
DX: T42.4X2A Poisoning by benzodiazepines, intentional self-harm, initial encounter (principal); F31.9 Bipolar disorder, unspecified; F41.9 Anxiety disorder, unspecified